=== PATIENT | female | born 1975 | race Caucasian/White ===

== ENCOUNTER 2019-11-17 13:21 | Emergency (ER) | payer OTHER ==
[~2019-11-17] VITALS: Ht 157.4 cm; Wt 72.6 kg
== END 2019-11-17 16:47 | disposition home or self-care (01) ==
LOC: ED 13:21
DX: S00.83XA Contusion of other part of head, initial encounter (principal); W19.XXXA Unspecified fall, initial encounter; Y93.89 Activity, other specified; Y92.89 Other specified places as the place of occurrence of the external cause; Y99.8 Other external cause status

== ENCOUNTER 2020-02-18 13:03 | Emergency (ER) | payer OTHER ==
[~2020-02-18] VITALS: Ht 157.4 cm; Wt 72.6 kg
[2020-02-18 14:00] LABS: BASO # 0.1 10*3/uL (0.0-0.1); BASO % 1.1 % (0.0-1.0); EOS # 0.1 10*3/uL (0.0-0.4); EOS % 0.8 % (1.0-4.0); LYMPH % 30.4 % (27.0-41.0); MEAN CELL VOLUME 89.2 fl (81.0-99.0); MEAN CORPUSCULAR HGB 28.6 pg (27.0-31.0); MEAN CORPUSCULAR HGB CONC 32.1 g/dl (33.0-37.0); MEAN PLATELET VOLUME 8.8 fl (9.6-12.3); MONO # 0.5 10*3/uL (0.1-1.0); MONO % 7.8 % (3.0-9.0); NEUT # 3.8 10*3/uL (2.3-7.9); NEUT % 59.7 % (47.0-73.0); PLATELET COUNT AUTOMATED 415 10*3/uL (130-400); RED BLOOD COUNT 4.82 10*6/uL (4.10-5.10); RED CELL DISTRI WIDTH 13.2 % (0-14.5); WHITE BLOOD COUNT 6.4 10*3/uL (4.8-10.8)
[2020-02-18 14:20] LABS: ALBUMIN 3.6 gm/dl (3.1-4.5); ALKALINE PHOSPHATASE 57 U/L (45-117); BUN 10 mg/dl (7-24); CHLORIDE 114 mmol/L (98-107); CREATININE 0.62 mg/dL (0.55-1.02); POTASSIUM 4.1 mmol/L (3.5-5.1); SGOT/AST 14 IU/L (3-35); SGPT/ALT 17 U/L (12-78); SODIUM 138 mmol/L (136-145)
[2020-02-18 14:28] LABS: BILIRUBIN Negative; BLOOD 3+ (NEGATIVE); CLARITY Clear (CLEAR); COLOR Yellow (YELLOW); GLUCOSE Negative; KETONE Negative; LEUKO ESTERASE Negative (NEGATIVE); NITRITE Positive (NEGATIVE); PH 5.5 (4.5-8.0); UROBILINOGEN 0.2 E.U./dl (0.0-1.0)
[2020-02-18 14:29] LABS: BACTERIA 4+
[2020-02-18] MEDS ORDERED: Motrin,Rufen800 MG PO (16:28)
[2020-02-18] MEDS ORDERED: CEFUROXIME AXE500 MG PO (16:28)
== END 2020-02-18 16:35 | disposition home or self-care (01) ==
LOC: ED 13:03
PROVIDERS: Physician Assistant
DX: N39.0 Urinary tract infection, site not specified (principal); F17.200 Nicotine dependence, unspecified, uncomplicated

== ENCOUNTER 2020-03-08 16:45 | Emergency (ER) | payer OTHER ==
[~2020-03-08] VITALS: Ht 157.4 cm; Wt 68.0 kg
[~2020-03-08 16:45] MED LIST: CEFUROXIME AXE500 MG PO; Motrin,Rufen800 MG PO
[2020-03-08] MEDS ORDERED: ANAPROX DS550 MG PO (19:12)
== END 2020-03-08 19:35 | disposition home or self-care (01) ==
LOC: ED 16:45
DX: S80.01XA Contusion of right knee, initial encounter (principal); S00.81XA Abrasion of other part of head, initial encounter; S00.31XA Abrasion of nose, initial encounter; Y08.89XA Assault by other specified means, initial encounter; Y93.89 Activity, other specified; Y92.89 Other specified places as the place of occurrence of the external cause; Y99.8 Other external cause status

== ENCOUNTER 2020-05-23 04:43 | Emergency (ER) | payer OTHER ==
[~2020-05-23] VITALS: Ht 157.4 cm; Wt 72.6 kg
[~2020-05-23 04:43] MED LIST changes: +ANAPROX DS550 MG PO
[2020-05-23] MEDS ORDERED: CYCLOBENZAPRINE10 MG PO (06:10)
[2020-05-23] MEDS ORDERED: NORCO 5-325 TA1 EACH PO (06:10)
[2020-05-23] MEDS ORDERED: PREDNISONE20 M1 PO (06:10)
== END 2020-05-23 06:42 | disposition home or self-care (01) ==
LOC: ED 04:43
DX: G58.8 Other specified mononeuropathies (principal); M54.6 Pain in thoracic spine; F17.200 Nicotine dependence, unspecified, uncomplicated; Z88.7 Allergy status to serum and vaccine

== ENCOUNTER 2021-03-21 18:26 | Emergency (ER) | payer OTHER ==
[~2021-03-21] VITALS: Ht 157.4 cm; Wt 63.5 kg
[~2021-03-21 18:26] MED LIST changes: +CYCLOBENZAPRINE10 MG PO; +NORCO 5-325 TA1 EACH PO; +PREDNISONE20 M1 PO
[2021-03-21] MEDS ORDERED: SEPTDS PO (19:00)
[2021-03-21] MEDS ORDERED: ELIMITE 5%60 GM T (19:00)
[2021-03-21] MEDS ORDERED: CEPHALEXIN500 M1 PO (19:00)
== END 2021-03-21 19:07 | disposition home or self-care (01) ==
LOC: ED 18:26
DX: L98.9 Disorder of the skin and subcutaneous tissue, unspecified (principal)

== ENCOUNTER 2021-09-20 11:31 | Emergency (ER) | payer OTHER ==
[~2021-09-20] VITALS: Ht 157.4 cm; Wt 72.6 kg
[~2021-09-20 11:31] MED LIST changes: +CEPHALEXIN500 M1 PO; +ELIMITE 5%60 GM T; +SEPTDS PO
[2021-09-20 13:40] LABS: BILIRUBIN Negative (Negative); BLOOD Negative (Negative); CLARITY Cloudy (Clear); COLOR Yellow (Yellow); GLUCOSE Negative (Negative); KETONE Trace (Negative); LEUKO ESTERASE 2+ (Negative); NITRITE Negative (Negative); SPECIFIC GRAVITY >= 1.030 (1.001-1.030)
[2021-09-20 13:54] LABS: EPITHELIAL CELLS TNTC; MUCOUS 4+
[2021-09-20 13:55] LABS: BACTERIA 2+; WBC TNTC wbc/hpf (0-5)
[2021-09-20] MEDS ORDERED: SEPTDS PO (14:10)
== END 2021-09-20 14:15 | disposition home or self-care (01) ==
LOC: ED 11:31
PROVIDERS: Physician Assistant
DX: N39.0 Urinary tract infection, site not specified (principal); Z20.2 Contact with and (suspected) exposure to infections with a predominantly sexual mode of transmission; Z88.7 Allergy status to serum and vaccine